=== PATIENT | male | born 1940 | race Caucasian/White ===

== ENCOUNTER 2021-04-07 12:02 | Day surgery (SDC) | payer MEDICARE ==
[2021-04-06 12:08] LABS: BASOPHILS % (AUTO) 1 % (0-1); EOSINOPHILS % (AUTO) 2 % (1-7); LYMPHOCYTES % (AUTO) 22 % (22-44); MEAN CORPUSCULAR HEMOGLOBIN 32.4 pg (27.5-34.5); MEAN CORPUSCULAR HGB CONC 33.7 g/dL (33.2-36.2); MEAN PLATELET VOLUME 8.7 fL (7.4-10.4); MONOCYTES % (AUTO) 6 % (2-9); NEUTROPHILS % (AUTO) 69 % (42-75); PLATELET COUNT 155 x10^3/uL (130-400); RED BLOOD COUNT 4.64 x10^6/uL (4.38-5.82); RED CELL DISTRIBUTION WIDTH 14.1 % (9.4-14.8)
[2021-04-06 12:14] LABS: ALBUMIN 4.2 g/dL (3.4-5.0); CALCIUM 9.4 mg/dL (8.5-10.1); CHLORIDE 108 mmol/L (98-107)
[2021-04-06 12:20] LABS: ALANINE AMINOTRANSFERASE 39 U/L (12-78); ALKALINE PHOSPHATASE 55 U/L (45-117); ANION GAP 5 mmol/L (5-15); BILIRUBIN,TOTAL 0.8 mg/dL (0.2-1.0); CREATININE 1.31 mg/dL (0.7-1.3); TOTAL PROTEIN 7.8 g/dL (6.4-8.2)
[~2021-04-07] VITALS: Ht 175.3 cm; Wt 79.9 kg
[~2021-04-07 12:02] MED LIST: ALLO300T PO; ASPI81TA45 PO; ATOR-2 PO; B CO1TAB14 PO; CHOL10003 PO; CHOL4PAC2 PO; FINA5TAB4 PO; LISI-170 PO; MONT10TA6 PO; OMEG1CAP39 PO; OMEP-110 PO; TAMS-11 PO; VIT1TABL32 PO; potassium citrate PO; turmeric PO
[2021-04-07] MEDS ORDERED: LABETALOL 5MG/ML, 20ML IV PRN (12:30)
[2021-04-07] MEDS ORDERED: hydrALAzine 20 MG/ML, 1ML IV PRN (12:30)
[2021-04-07] MEDS ORDERED: ACETAMINOPHEN 325 MG TABLET PO PRN (12:30)
[2021-04-07] MEDS ORDERED: FENTANYL PF 100 MCG/2ML IV PRN (12:30)
[2021-04-07] MEDS ORDERED: PROMETHAZINE 25 MG/ML, 1ML IVPush PRN (12:30)
[2021-04-07] MEDS ORDERED: HYDROmorphone 1 MG/ML, 1ML INJ IVPush PRN (12:30)
[2021-04-07] MEDS ORDERED: OXYcodone 5 MG/5 ML ORAL.SOL UDC PO PRN (12:30)
[2021-04-07] MEDS ORDERED: ONDANSETRON 2MG/ML, 2ML IVPush PRN (12:30)
[2021-04-07] MEDS ORDERED: CHLORHEXIDINE 15 ML UDC PO ONE (13:00)
[2021-04-07] MEDS ORDERED: LACTATED RINGERS 1,000 ML IV SCH (13:00)
[2021-04-07 13:04] VITALS: BP 125/69
[2021-04-07] MEDS ORDERED: CHLORHEXIDINE 15 ML UDC ONE (13:06)
[2021-04-07] MEDS ORDERED: MIDAZOLAM 1 MG/ML, 2ML ONE (13:38)
[2021-04-07] MEDS ORDERED: FENTANYL PF 100 MCG/2ML ONE ×2 (13:38→14:36)
[2021-04-07] MEDS ORDERED: DEXAMETHASONE 4 MG/ML, 1ML ONE (13:48)
[2021-04-07] MEDS ORDERED: ONDANSETRON 2MG/ML, 2ML ONE (13:48)
[2021-04-07] MEDS ORDERED: PROPOFOL 10 MG/ML, 20ML ONE (13:48)
[2021-04-07] MEDS ORDERED: CEFAZOLIN 1,000 MG ONE (13:52)
[2021-04-07] MEDS ORDERED: ACETAMINOPHEN 650 MG/20.3 ML UDC ONE (14:43)
[2021-04-07] MEDS ORDERED: OXYcodone 5 MG/5 ML ORAL.SOL UDC ONE (14:43)
== END 2021-04-07 16:10 | disposition home or self-care (01) ==
LOC: OUT 12:02
PROVIDERS: ATTEND Urology
DX: N32.0 Bladder-neck obstruction (principal); N31.2 Flaccid neuropathic bladder, not elsewhere classified; N40.1 Benign prostatic hyperplasia with lower urinary tract symptoms; I12.9 Hypertensive chronic kidney disease with stage 1 through stage 4 chronic kidney disease, or unspecified chronic kidney disease; N18.9 Chronic kidney disease, unspecified; Z20.822 Contact with and (suspected) exposure to COVID-19; Z79.899 Other long term (current) drug therapy; Z98.890 Other specified postprocedural states
CPT/HCPCS: 36415; 52281; 80053; 85025; 87086; 93005; J0690; J1100; J2250; J2405; J2704; J3010; J7120; U0003; U0005